=== PATIENT | male | born 1980 | race Caucasian/White ===

== ENCOUNTER 2020-10-12 12:57 | Observation (INO) | payer OTHER ==
[2020-10-12] MEDS ORDERED: SODIUM CHLORIDE 0.9% 500 ML 500 ML IV STA (13:07)
[2020-10-12 13:09] LABS: Glucose,Whole Blood 192 mg/dL (75-99)
--- NOTE | 2020-10-12 13:11 | ED ---
General Adult HPI - General Chief complaint: Overdose Stated complaint: Altered, Low Heart Rate Time Seen by Provider: 10/12/20 12:58 Source: patient, EMS, RN notes reviewed Mode of arrival: EMS Limitations: no limitations - History of Present Illness Initial comments: Patient is a pleasant 40-year-old male presenting to the emergency department by EMS as a transfer from [place]. Patient was going to check him however they felt he was too drowsy. Patient does admit to using cocaine yesterday. Patient states in addition he took 80 of methadone which she does not normally do. Patient also took 20 of Valium. Patient admits to feeling drowsy however states he is able to wake up when needed to be. Patient denies any drug use today. Patient states he was going to [facility] secondary to multiple pairs drug uses. No alcohol use. No suicidal or homicidal thoughts. - Related Data Home Medications Medication Instructions Recorded Confirmed Diazepam [Valium] 10 mg PO TID PRN 10/12/20 10/12/20 cloNIDine HCL 0.1 mg PO HS 10/12/20 10/12/20 Allergies Allergy/AdvReac Type Severity Reaction Status Date / Time haloperidol [From Haldol] Allergy Hallucinations, Verified 10/12/20 13:14 Seizures Review of Systems ROS Statement: Those systems with pertinent positive or pertinent negative responses have been documented in the HPI. ROS Other: All systems not noted in ROS Statement are negative. Constitutional: Denies: fever Eyes: Denies: eye pain ENT: Denies: ear pain Respiratory: Denies: cough Cardiovascular: Denies: chest pain Endocrine: Denies: fatigue Gastrointestinal: Denies: abdominal pain Genitourinary: Denies: urgency Musculoskeletal: Denies: back pain Skin: Denies: rash Neurological: Denies: weakness Psychiatric: Denies: suicidal thoughts Past Medical History Past Medical History: Hypertension History of Any Multi-Drug Resistant Organisms: None Reported Past Surgical History: No Surgical Hx Reported Past Psychological History: No Psychological Hx Reported Past Drug Use History: Cocaine, Heroin, Marijuana, Opiates, Prescription Drug Abuse General Exam Limitations: no limitations General appearance: other (Patient is slightly drowsy but easily arousable to voice) Head exam: Present: atraumatic, normocephalic Eye exam: Present: normal appearance, EOMI Pupils: Present: miosis ENT exam: Present: normal oropharynx Neck exam: Present: normal inspection Respiratory exam: Present: normal lung sounds bilaterally Cardiovascular Exam: Present: bradycardia GI/Abdominal exam: Present: soft. Absent: tenderness Extremities exam: Present: normal inspection Neurological exam: Present: CN II-XII intact. Absent: motor sensory deficit Expanded Speech: Present: fluid speech Cranial nerves: EOM's Intact: Normal Motor strength exam: RUE: 5, LUE: 5, RLE: 5, LLE: 5 Eye Response: (3) open to voice Motor Response: (6) obeys commands Verbal Response: (5) oriented Psychiatric exam: Present: normal affect, normal mood Skin exam: Present: normal color Course Vital Signs 10/12/20 10/12/20 10/12/20 12:59 13:52 14:04 Temperature 98.0 F Pulse Rate 52 L 55 L Respiratory 17 16 Rate Blood Pressure 96/60 98/64 82/46 O2 Sat by Pulse 96 98 Oximetry 10/12/20 10/12/20 10/12/20 15:04 16:04 16:12 Temperature 98.2 F Pulse Rate 46 L 36 L 47 L Respiratory 17 Rate Blood Pressure 73/45 104/71 93/52 O2 Sat by Pulse Oximetry 10/12/20 17:50 Temperature Pulse Rate 37 L Respiratory 16 Rate Blood Pressure 92/62 O2 Sat by Pulse 98 Oximetry EKG Findings - EKG Comments: EKG Findings:: Sinus bradycardia rate of 51. MT 216. QRS 92. QT 474. QTC 436. Normal axis. Normal QRS. No acute ST change. Medical Decision Making - Medical Decision Making Patient remains drowsy. Patient was not done and his feet with attempted ambulation. Case was discussed with Dr. Dean, who will admit covering hospital call. - Lab Data Result diagrams: 10/12/20 13:20 10/12/20 13:20 Lab Results 10/12/20 10/12/20 10/12/20 Range/Units 13:07 13:20 13:20 WBC 9.5 (3.8-10.6) k/uL RBC 4.30 (4.30-5.90) m/uL Hgb 13.7 (13.0-17.5) gm/dL Hct 39.0 (39.0-53.0) % MCV 90.8 (80.0-100.0) fL MCH 31.8 (25.0-35.0) pg MCHC 35.0 (31.0-37.0) g/dL RDW 12.6 (11.5-15.5) % Plt Count 234 (150-450) k/uL MPV 7.6 Neutrophils % 52 % Lymphocytes % 36 % Monocytes % 7 % Eosinophils % 2 % Basophils % 1 % Neutrophils # 4.9 (1.3-7.7) k/uL Lymphocytes # 3.4 (1.0-4.8) k/uL Monocytes # 0.6 (0-1.0) k/uL Eosinophils # 0.2 (0-0.7) k/uL Basophils # 0.1 (0-0.2) k/uL Sodium 136 L (137-145) mmol/L Potassium 4.1 (3.5-5.1) mmol/L Chloride 100 (98-107) mmol/L Carbon Dioxide 29 (22-30) mmol/L Anion Gap 7 mmol/L BUN 17 (9-20) mg/dL Creatinine 0.85 (0.66-1.25) mg/dL Est GFR (CKD-EPI)AfAm >90 (>60 ml/min/1.73 sqM) Est GFR (CKD-EPI)NonAf >90 (>60 ml/min/1.73 sqM) Glucose 125 H (74-99) mg/dL POC Glucose (mg/dL) 192 H (75-99) mg/dL POC Glu Local [employer] ID Veronica Chaves Calcium 8.8 (8.4-10.2) mg/dL Total Bilirubin 0.4 (0.2-1.3) mg/dL AST 42 (17-59) U/L ALT 21 (4-49) U/L Alkaline Phosphatase 56 (38-126) U/L Total Protein 6.6 (6.3-8.2) g/dL Albumin 4.1 (3.5-5.0) g/dL Salicylates <1.0 mg/dL Acetaminophen <10.0 ug/mL Serum Alcohol <10 mg/dL Disposition Clinical Impression: Methadone overdose Disposition: ADMITTED IP TO THIS HOSP Is patient prescribed a controlled substance at d/c from ED?: No Referrals: None,Stated [Primary Care Provider] - 1-2 days Decision Time: 17:58
[2020-10-12 13:40] LABS: Basophils # (A) 0.1 k/uL (0-0.2); Basophils % (A) 1 %; Eosinophils # (A) 0.2 k/uL (0-0.7); Eosinophils % (A) 2 %; HGB 13.7 gm/dL (13.0-17.5); Lymphocytes # (A) 3.4 k/uL (1.0-4.8); Lymphocytes % (A) 36 %; MCH 31.8 pg (25.0-35.0); MCV 90.8 fL (80.0-100.0); Mean Platelet Volume 7.6; Monocytes # (A) 0.6 k/uL (0-1.0); Monocytes % (A) 7 %; Neutrophils # (A) 4.9 k/uL (1.3-7.7); Neutrophils % (A) 52 %; Platelet Count 234 k/uL (150-450); RDW 12.6 % (11.5-15.5); WBC 9.5 k/uL (3.8-10.6)
[2020-10-12 14:01] LABS: ALT 21 U/L (4-49); AST 42 U/L (17-59); Acetaminophen <10.0 ug/mL; African American GFR (CKD) >90 (>60 ml/min/1.73 sqM); Albumin 4.1 g/dL (3.5-5.0); Alcohol <10 mg/dL; Alkaline Phosphatase 56 U/L (38-126); Anion Gap 7 mmol/L; Blood Urea Nitrogen 17 mg/dL (9-20); Calcium 8.8 mg/dL (8.4-10.2); Carbon Dioxide 29 mmol/L (22-30); Chloride 100 mmol/L (98-107); Glucose 125 mg/dL (74-99); Non-African American GFR(CKD) >90 (>60 ml/min/1.73 sqM); Potassium 4.1 mmol/L (3.5-5.1); Salicylate <1.0 mg/dL; Sodium 136 mmol/L (137-145); Total Bilirubin 0.4 mg/dL (0.2-1.3); Total Protein 6.6 g/dL (6.3-8.2)
[2020-10-12] MEDS ORDERED: SODIUM CHLORIDE 0.9% 1,000 ML IV STA (16:57)
[2020-10-12 17:52] VITALS: RESP 16
[2020-10-12] MEDS ORDERED: NALOXONE 0.4 MG/ML 1 ML VIAL IV PRN (17:59)
[2020-10-12] MEDS ORDERED: SODIUM CHLORIDE 0.9% 1,000 ML IV SCH (18:00)
[2020-10-12 20:45] LABS: Appearance,Urine Clear (Clear); Bilirubin,Urine Negative (Negative); Blood,Urine Negative (Negative); Color,Urine Yellow; Glucose,Urine (UA) Negative (Negative); Ketones,Urine Negative (Negative); Leukocyte Esterase,Urine Negative (Negative); Nitrite,Urine Negative (Negative); PH, Urine 5.5 (5.0-8.0); Protein,Urine Trace (Negative); Specific Gravity,Urine 1.025 (1.001-1.035); Urobilinogen,Urine <2.0 mg/dL (<2.0)
[2020-10-12 20:51] LABS: Cocaine Screen,Urine Detected (NotDetected); Phencyclidine Screen,Urine Not Detected (NotDetected); Urn Cannabinoid Scrn Detected (NotDetected)
[2020-10-12 20:52] LABS: Amphetamine Screen,Urine Not Detected (NotDetected); Barbiturate Screen,Urine Not Detected (NotDetected); Benzodiazepines Screen,Urine Detected (NotDetected); Methadone Screen, Urine Detected (NotDetected); Opiate Screen,Urine Not Detected (NotDetected); Oxycodone Screen, Urine Not Detected (NotDetected); Tricyclic Antidepressant,Urine Not Detected (NotDetected)
[2020-10-13 03:08] VITALS: PULSE 50
[2020-10-13 07:46] VITALS: BP 106/66; TEMP 97.9
--- NOTE | 2020-11-01 00:26 | P.HPIM ---
History of Present Illness H&P Date: 10/13/20 Chief Complaint: Brought from [facility] for drowsiness Mr. Venegas is a 48-year-old male who presented to the emergency department by EMS as a transfer from [place] as the patient was found to be too drowsy at the facility. The patient admits to using cocaine yesterday and in addition he took 80 mg of methadone. Patient does not usually take methadone. He also reports taking 20 of Valium. Patient mentions that he was at [place] as he has multiple drug abuses. Patient denied having any homicidal or suicidal thoughts. ED course-patient was found to be drowsy and so admitted for further management. Patient's vital signs at the time of admission temperature 98, heart rate 52, respiratory rate 17, blood pressure 90 x 60, saturating at 96% on room air. On reviewing the patient's labs white count of 9.5, hemoglobin 13.7, platelet 234. Sodium 136, potassium 4.1, chloride 100, bicarb 21, BUN 17, creatinine 0.85. Patient had a UDS that was positive for methadone, benzos, cocaine, marijuana. As per discussion with nursing staff overnight the patient was yelling at the hospital staff and he was threatening to burn down the hospital and everyone that does not help him. Later on he was coming down by hospital personnel and security. This morning when I went to evaluate him, patient was dressed up and ready to go to [place]. Discussed with him about his heart rate and blood pressure being on the softer side, patient states that his blood pressure and heart rate are always on the lower side. He is completely asymptomatic. He denied having any chest pain, dizziness, shortness of breath. He states that he wants to be d ischarged as soon as possible. Review of Systems REVIEW OF SYSTEMS: CONSTITUTIONAL: No fever, no malaise, no fatigue. HEENT: No recent visual problems or hearing problems. Denied any sore throat. CARDIOVASCULAR:no chest pain PULMONARY: No shortness of breath, no cough, no hemoptysis. GASTROINTESTINAL: No diarrhea, no nausea, no vomiting, no abdominal pain. NEUROLOGICAL: No headaches, no weakness, no numbness. HEMATOLOGICAL: Denies any bleeding or petechiae. GENITOURINARY: Denies any burning micturition, frequency, or urgency. MUSCULOSKELETAL/RHEUMATOLOGICAL: Denies any joint pain, swelling, or any muscle pain. ENDOCRINE: Denies any polyuria or polydipsia. The rest of the 14-point review of systems is negative. Past Medical History Past Medical History: Hypertension History of Any Multi-Drug Resistant Organisms: None Reported Past Surgical History: No Surgical Hx Reported Past Psychological History: No Psychological Hx Reported Smoking Status: Former smoker Past Drug Use History: Cocaine, Heroin, Marijuana, Opiates, Prescription Drug Abuse Medications and Allergies Home Medications Medication Instructions Recorded Confirmed Type Diazepam [Valium] 10 mg PO TID PRN 10/12/20 10/12/20 History cloNIDine HCL 0.1 mg PO HS 10/12/20 10/12/20 History Allergies Allergy/AdvReac Type Severity Reaction Status Date / Time haloperidol [From Haldol] Allergy Hallucinations, Verified 10/12/20 13:14 Seizures Physical Exam Vitals: Vital Signs Temp Pulse Pulse Resp BP BP Pulse Ox 10/13/20 07:01 50 L 16 10/13/20 07:00 97.9 F 48 L 18 106/66 99 10/13/20 02:00 97.7 F 50 L 16 83/52 96 10/12/20 20:00 97.7 F 48 L 16 85/55 98 10/12/20 18:37 40 L 16 92/61 95 10/12/20 17:50 37 L 16 92/62 98 10/12/20 16:12 98.2 F 47 L 93/52 10/12/20 16:04 36 L 104/71 10/12/20 15:04 46 L 17 73/45 10/12/20 14:04 82/46 10/12/20 13:52 55 L 16 98/64 98 10/12/20 12:59 98.0 F 52 L 17 96/60 96 Intake and Output 10/12/20 10/13/20 10/13/20 22:59 06:59 14:59 Other: Voiding Method Toilet Toilet Toilet # Voids 1 1 1 Weight 81.647 kg PHYSICAL EXAMINATION: GENERAL: The patient is alert and oriented x3, not in any acute distress. Well developed, well nourished. HEENT: Pupils are round and equally reacting to light. EOMI. No scleral icterus. No conjunctival pallor CARDIOVASCULAR: S1 and S2 present.Bradycardia PULMONARY: Chest is clear to auscultation, no wheezing or crackles. ABDOMEN: Soft, nontender, nondistended, normoactive bowel sounds. No palpable organomegaly. MUSCULOSKELETAL: No joint swelling or deformity. EXTREMITIES: No cyanosis, clubbing, or pedal edema. NEUROLOGICAL: Gross neurological examination did not reveal any focal deficits. SKIN:No rash Results CBC & Chem 7: 10/12/20 13:20 10/12/20 13:20 Labs: Abnormal Lab Results - Last 24 Hours (Table) 10/12/20 10/12/20 10/12/20 Range/Units 13:07 13:07 13:20 Sodium 136 L (137-145) mmol/L Glucose 125 H (74-99) mg/dL POC Glucose (mg/dL) 192 H (75-99) mg/dL Urine Protein Trace H (Negative) Urine Methadone Screen Detected H (NotDetected) U Benzodiazepines Scrn Detected H (NotDetected) Urine Cocaine Screen Detected H (NotDetected) U Marijuana (THC) Screen Detected H (NotDetected) Assessment and Plan Assessment: ASSESSMENT Drowsiness secondary to methadone overdose UDS is positive for cocaine, benzos, methadone, THC History of polysubstance abuse Hypertension Former smoker PLAN: Patient is no longer drowsy and back to his baseline mentation. He is pacing in the hallways and wants to be discharged. Patient said he would be going to [facility] for rehabilitation as he has history of multiple drug abuse. So the patient is being discharged.
--- NOTE | 2020-11-01 00:28 | P.DS ---
Providers Date of admission: 10/12/20 17:59 Expected date of discharge: 10/13/20 Attending physician: Lena Dean Primary care physician: Stated None Hospital Course: Mr. Venegas is a 48-year-old male who presented to the emergency department by EMS as a transfer from [place] as the patient was found to be too drowsy at the facility. The patient admits to using cocaine yesterday and in addition he took 80 mg of methadone. Patient does not usually take methadone. He also reports taking 20 of Valium. Patient mentions that he was at [facility] as he has multiple drug abuses. Patient denied having any homicidal or suicidal thoughts. ED course-patient was found to be drowsy and so admitted for further management. Patient's vital signs at the time of admission temperature 98, heart rate 52, respiratory rate 17, blood pressure 90 x 60, saturating at 96% on room air. On reviewing the patient's labs white count of 9.5, hemoglobin 13.7, platelet 234. Sodium 136, potassium 4.1, chloride 100, bicarb 21, BUN 17, creatinine 0.85. Patient had a UDS that was positive for methadone, benzos, cocaine, marijuana. As per discussion with nursing staff overnight the patient was yelling at the hospital staff and he was threatening to burn down the hospital and everyone that does not help him. Later on he was coming down by hospital personnel and security. This morning when I went to evaluate him, patient was dressed up and ready to go to [place]. Discussed with him about his heart rate and blood pressure being on the softer side, patient states that his blood pressure and heart rate are always on the lower side. He is completely asymptomatic. He denied having any chest pain, dizziness, shortness of breath. He states that he wants to be discharged as soon as possible. DISCHARGE DIAGNOSIS Drowsiness secondary to methadone overdose UDS is positive for cocaine, benzos, methadone, THC History of polysubstance abuse Hypertension Former smoker PLAN: Patient is no longer drowsy and back to his baseline mentation. He is pacing in the hallways and wants to be discharged. Patient said he would be going to [facility] for rehabilitation as he has history of multiple drug abuse. So the patient is being discharged. Patient Condition at Discharge: Fair Plan - Discharge Summary New Discharge Prescriptions: Continue cloNIDine HCL 0.1 mg PO HS Diazepam [Valium] 10 mg PO TID PRN PRN Reason: Anxiety Discharge Medication List Diazepam [Valium] 10 mg PO TID PRN 10/12/20 [History] cloNIDine HCL 0.1 mg PO HS 10/12/20 [History] Follow up Appointment(s)/Referral(s): None,Stated [Primary Care Provider] - 1-2 days Patient Instructions/Handouts: Polysubstance Abuse (ED) Discharge Disposition: HOME SELF-CARE Plan of Treatment: Return to [facility]
== END 2020-10-13 11:03 | disposition home or self-care (01) ==
LOC: EC 12:57 → 6NMEDSUR 17:59
PROVIDERS: ADMIT Internal Medicine; ATTEND Internal Medicine
DX: T40.3X1A Poisoning by methadone, accidental (unintentional), initial encounter (principal); F19.10 Other psychoactive substance abuse, uncomplicated; F14.90 Cocaine use, unspecified, uncomplicated; I10 Essential (primary) hypertension; F41.9 Anxiety disorder, unspecified; Z88.8 Allergy status to other drugs, medicaments and biological substances; Z79.899 Other long term (current) drug therapy; Z87.891 Personal history of nicotine dependence
CPT/HCPCS: 96360; 99285; 36415; 93005; 80053; 85025; 81003; 80306; 80143; 80179; G0378 ×2; G0480; 80320